=== PATIENT | male | born 1995 | race Caucasian/White ===

== ENCOUNTER 2019-12-15 17:44 | Emergency (ER) | payer OTHER, SELFPAY ==
--- NOTE | ~2019-12-15 | XR_ITS ---
EXAMINATION: XR chest 2V DATE: 12/15/2019 18:32 INDICATION: Shortness of breath and cough. Chest pain. TECHNIQUE: Frontal and lateral views of the chest were obtained. COMPARISON: None. FINDINGS: The chest demonstrates clear lungs without pneumonia, pleural effusion, or pneumothorax. Th e heart size is normal. IMPRESSION: 1. No acute cardiopulmonary disease. Reviewed, dictated and finalized at location A.
--- NOTE | 2019-12-15 17:48 | PC.NURSE ---
Pt states was that [place] ([place]). States his work would not allow him to skip or self-quarantine upon returning (12/10/19). Developed fever, wheezing, shortness of breath yesterday(12/14/19). Pt masked upon arrival to ED. [employer] supervisor Carol made aware.
[2019-12-15 17:56] VITALS: BP 148/88; PULSE 109; RESP 26; TEMP 37.5; O2SAT 99
--- NOTE | 2019-12-15 18:02 | ECG_ITS ---
Measurements Intervals [place] Rate: 88 P: 40 ND: 154 QRS: 45 QRSD: 102 T: 14 QT: 338 QTc: 409 Interpretive Statements SINUS RHYTHM WITH SINUS ARRHYTHMIA NORMAL ECG Electronically Signed On 12-15-2019 18:46:55 CDT by Bud Patten D.O.
--- NOTE | 2019-12-15 18:28 | ED.SOB ---
HPI - SOB/Dyspnea General Chief Complaint: Shortness of Breath/Dyspnea Stated Complaint: fever, wheezing, shortness of breath Time Seen by Provider: 12/15/19 18:05 History of Present Illness HPI Narrative: Fever, cough, wheezing, nausea, and vomiting since yesterday. Additionally having some abdominal pain while vomiting. minimal SOB. Influenza negative during triage. He has been taking motrin and tylenol with minimal improvement of his symptoms. Related Data Allergies Allergy/AdvReac Type Severity Reaction Status Date / Time hydromorphone Allergy Unknown Rash Verified 04/26/18 21:14 Review of Systems Review of Systems: All systems reviewed & are unremarkable except as noted in HPI and below Constitutional: Constitutional: Reports chills and Reports fever(s) Eyes: Eyes: Denies change in vision ENT: Denies sore throat Cardiovascular: Cardiovascular: Reports chest pain Respiratory: Respiratory: Reports cough, Reports dyspnea and Reports wheezing Gastrointestinal: Gastrointestinal: Reports abdominal pain, Reports nausea and Reports vomiting Genitourinary: Genitourinary: Denies dysuria Musculoskeletal: Musculoskeletal: Reports myalgias Integumentary/Breasts: Skin/Breast: Denies rash Neurologic: Denies dizziness and Denies weakness [facility] Past Medical History Medical History (Updated 12/15/19 @ 20:04 by Jonathon Means MD) Gastroschisis Social History Social History (Updated 12/15/19 @ 18:34 by Jonathon Means MD) Social History: Travel to [place] 10 days ago Gender identity (if verbalized by the patient): Male Exam Const: General: no acute distress, alert, diaphoretic and ill appearing acutely Nutritional Appearance: obese Orientation/consciousness: patient oriented x3 HENMT: Head: normal to inspection Resp: Effort & Inspection: normal respiratory effort Auscultation: clear to auscultation bilaterally Cardio: Rate: tachycardic Rhythm: regular rhythm GI: GI Palp: Yes Soft to palpation and No Tenderness to palpation present (GI) Skin: General skin exam: normal color Neuro: General: patient oriented x3 and moves all extremities Speech: normal speech Extrem: General: normal to inspection Course Vital Signs Vital signs: Vital Signs Temperature 37.5 C 12/15/19 17:56 Pulse Rate 109 H 12/15/19 17:56 Respiratory Rate 26 H 12/15/19 17:56 Blood Pressure 148/88 H 12/15/19 17:56 Pulse Oximetry 99 12/15/19 17:56 Temperature 36.9 C 12/15/19 19:06 Pulse Rate 99 12/15/19 20:01 Respiratory Rate 15 12/15/19 19:06 Blood Pressure 141/90 H 12/15/19 20:01 Pulse Oximetry 99 12/15/19 19:06 MDM - SOB/Dyspnea MDM Narrative Medical decision making narrative: He has symptoms compatibloe with COVID-19 infection. He had recent travel to [place], which is an endemic area. CXR is clear and vitals are reassuring. He has no comorbid conditions increasing his risk of severe disease. He does not require hospitalization. He does not meet criteria for priority testing per [facility], they did advise that testing could be done per a private facility. I will plan to do this given that he has risk factors and compatible symptoms. He also has been exposed to his elderly grandmother who would benefit from early diagnosis should symptoms develop. Differential Diagnosis Differential diagnosis: Likely community acquired pneumonia and other (influenza, COVID-19, bronchitis, gastroenteritis) Medical Records Attestation: I reviewed the patient's medical records. Lab Data Attestation: I reviewed the patient's lab results. Result diagrams: 12/15/19 18:25 12/15/19 18:25 Labs: Lab Results 12/15/19 12/15/19 Range/Units 18:25 18:25 WBC 10.3 H (4.5-10.0) K/mm3 RBC 5.16 (4.6-6.20) M/mm3 Hgb 15.7 (14.0-18.0) g/dL Hct 44.0 (42.0-52.0) % MCV 85.3 (80-100) fl MCH 30.4 (26-34) pg MCHC 35.7 (32-36) g/dl RDW 12.6 (11.5-14.5) % Plt
[2019-12-15 18:30] VITALS: PULSE 105; O2SAT 99
[2019-12-15 18:35] LABS: Basophils Absolute Auto 0.1 K/mm3 (0.0-0.1); Basophils Percent Auto 0.8 % (0.2-1.2); Eosinophils Absolute Auto 0.9 K/mm3 (0-0.3); Eosinophils Percent Auto 8.6 % (0-4.4); Hemoglobin 15.7 g/dL (14.0-18.0); Immature Granulocyte Absolute 0.04 K/mm3 (0.00-0.031); Immature Granulocyte Percent A 0.4 % (0-0.5); Lymphocytes Absolute Auto 2.91 K/mm3 (0.9-3.2); Lymphocytes Percent Auto 28.2 % (18.3-44.2); Mean Corpuscular HGB Conc 35.7 g/dl (32-36); Mean Corpuscular Hemoglobin 30.4 pg (26-34); Mean Corpuscular Volume 85.3 fl (80-100); Mean Platelet Volume 9.1 fl (7.4-10.4); Monocytes Absolute Auto 0.6 K/mm3 (0.1-0.6); Monocytes Percent Auto 5.8 % (2.6-8.5); Neutrophils Absolute Auto 5.8 K/mm3 (1.3-6.7); Neutrophils Percent Auto 56.2 % (45.5-73.1); Platelet Count Result 275 k/mm3 (150-375); Red Blood Count 5.16 M/mm3 (4.6-6.20); Red Cell Distribution Width 12.6 % (11.5-14.5); White Blood Count 10.3 K/mm3 (4.5-10.0)
[2019-12-15 18:43] LABS: Blood Urea Nitrogen 20 mg/dL (9-20); Calcium 9.6 mg/dL (8.4-10.2); Carbon Dioxide 29 mmol/L (22-30); Chloride 104 mmol/L (98-107); Estimated CRCL calculation 114 ml/min; Estimated Glomerular Filt Rate > 60; Glucose 92 mg/dL (75-110); Potassium 3.7 mmol/L (3.4-5.0); Sodium 139 mmol/L (137-145)
[2019-12-15] MEDS: ALBUTEROL SULFATE NEB 2.5 MG/0.5 ML INH 5 MG INHALATION (18:54)
[2019-12-15 18:55] VITALS: PULSE 78; RESP 16
[2019-12-15] MEDS: ONDANSETRON INJ 4 MG/2 ML VIAL IV PUSH (19:05)
[2019-12-15 19:06] VITALS: BP 140/84; PULSE 91; PULSE 97; RESP 15; RESP 16; TEMP 36.9; O2SAT 99
[2019-12-15 20:01] VITALS: BP 141/90; PULSE 99
[2019-12-15 20:25] VITALS: BP 141/90; PULSE 93; RESP 17; O2SAT 99
[2019-12-22 10:31] LABS: SARS-CoV-2 RNA: Negative
[2019-12-22 10:32] LABS: Pan-SARS RNA: Negative
== END 2019-12-15 20:30 | disposition home or self-care (01) ==
PROVIDERS: Emergency Medicine; Emergency Provider Emergency Medicine
DX: B34.9 Viral infection, unspecified (principal); Z20.828 Contact with and (suspected) exposure to other viral communicable diseases
CPT/HCPCS: 36415; 71046; 80048; 85025; 87635; 87804; 93005; 94640; 96374; 99284; J2405; U0002

== ENCOUNTER 2021-06-08 08:09 | Emergency (ER) | payer OTHER, SELFPAY ==
[2021-06-08] VITALS (15 sets, daily range): BP systolic 116–154; BP diastolic 66–99; PULSE 50–77; RESP 14–26; TEMP 36.1–36.8; O2SAT 96–100
--- NOTE | ~2021-06-08 | CT_ITS ---
EXAMINATION: CT abdomen pelvis wo con EXAM DATE: 06/08/2021 09:07 INDICATION: Lower abdominal pain with nausea. TECHNIQUE: Spiral CT of the abdomen and pelvis was performed without contrast. Axial, coronal and sag ittal images were reviewed. The dose-length product (DLP) for this examination was 703.32 mGy-cm. T he exposure was tailored according to patient size (auto mA exposure control), and iterative reconstr uction (ASIR) was used as additional dose reduction technique. There is no prior study for compariso n. FINDINGS: There is a 2 mm calcification likely a right ureterovesicular junction stone. Mild right hy droureteronephrosis. Additional punctate right mid calyceal stone. The prostate is unremarkable. Th e bladder is unremarkable. The liver, spleen, adrenal glands and pancreas are unremarkable. Gallbla dder is unremarkable. No biliary obstruction. Scattered small mesenteric lymph nodes within normal size limits. There are no findings to suggest appendicitis. The stomach and small bowel are unremarkable. There is expected amount of colonic stool. No free intraperitoneal gas. The heart is normal in size. T here are no pericardial or pleural effusions. The lung bases are unremarkable. There are no osteobl astic or osteolytic lesions identified. IMPRESSION: 1. Right UVJ 2 mm stone. Mild hydroureteronephrosis. 2. Punctate right nephrolithiasis. Reviewed, dictated and finalized at location B.
[2021-06-08 08:23] LABS: Basophils Absolute Auto 0.1 K/mm3 (0.0-0.1); Basophils Percent Auto 0.8 % (0.2-1.2); Eosinophils Absolute Auto 0.2 K/mm3 (0-0.3); Eosinophils Percent Auto 2.1 % (0-4.4); Hemoglobin 16.3 g/dL (14.0-18.0); Immature Granulocyte Absolute 0.07 K/mm3 (0.00-0.031); Immature Granulocyte Percent A 0.7 % (0-0.5); Lymphocytes Absolute Auto 4.21 K/mm3 (0.9-3.2); Lymphocytes Percent Auto 39.8 % (18.3-44.2); Mean Corpuscular HGB Conc 35.4 g/dl (32-36); Mean Corpuscular Hemoglobin 30.2 pg (26-34); Mean Corpuscular Volume 85.3 fl (80-100); Monocytes Absolute Auto 0.8 K/mm3 (0.1-0.6); Monocytes Percent Auto 7.6 % (2.6-8.5); Neutrophils Absolute Auto 5.2 K/mm3 (1.3-6.7); Platelet Count Result 293 k/mm3 (150-375); Red Blood Count 5.39 M/mm3 (4.6-6.20); Red Cell Distribution Width 12.6 % (11.5-14.5); White Blood Count 10.6 K/mm3 (4.5-10.0)
[2021-06-08] MEDS: SODIUM CHLORIDE 0.9% IV 1,000 ML 999 ML IV CONT (08:53)
[2021-06-08] MEDS: KETOROLAC 30 MG/ML VIAL (*BKC) (08:54)
[2021-06-08] MEDS: ONDANSETRON INJ 4 MG/2 ML VIAL ×2 (08:54→09:33)
[2021-06-08 10:17] LABS: Add Urine Microscopic? YES; Appearance Urine Clear (Clear); Bilirubin Urine Negative (Negative); Blood Urine 2+ (Negative); Color Urine Yellow (Yellow); Glucose Urine UA Negative (Negative); Ketones Urine Negative (Negative); Leukocyte Esterase Ur Trace LEU/UL (Negative); Mucus Urine Moderate /lpf; Nitrate Urine Negative (Negative); Protein Urine Negative (Negative); Squamous Epithelial Cell Urine Rare /hpf (Few); WBC Urine 16-20 /hpf
[2021-06-08 10:21] LABS: Specific Grav Ur 1.036 (1.001-1.035)
[2021-06-08 10:22] LABS: Alanine Aminotransferase 127 U/L (4-50); Albumin Level 4.6 g/dL (3.5-5.1); Alkaline Phosphatase 103 U/L (38-126); Anion Gap 10 mmol/L (8-16); Aspartate Amino Transferase 48 U/L (17-59); Bilirubin,Total 1.2 mg/dL (0.2-1.3); Blood Urea Nitrogen 23 mg/dL (9-20); Calcium 9.5 mg/dL (8.4-10.2); Carbon Dioxide 23 mmol/L (22-30); Chloride 107 mmol/L (98-107); Estimated CRCL calculation 112 ml/min; Estimated Glomerular Filt Rate > 60; Glucose 105 mg/dL (65-110); Lipase 70 U/L (23-300); Potassium 4.1 mmol/L (3.4-5.0); Sodium 140 mmol/L (137-145)
[2021-06-08] MEDS: TAMSULOSIN HCL 0.4 MG CAPSULE PO (10:42)
[2021-06-08] MEDS: MORPHINE SULFATE (*CRX) 4 MG/ML INJ IV PUSH ×2 (10:42→12:20)
--- NOTE | 2021-06-08 12:04 | PC.NURSE ---
C/O continued pain to right side over into abd unrelieved with Morphine. Dr. Doss notified.
--- NOTE | 2021-06-08 12:14 | ED.ABDPAIN ---
HPI - Abdominal Pain General Chief Complaint: Abdominal Pain Stated Complaint: RLQ PAIN Time Seen by Provider: 06/08/21 08:47 Source: patient Limitations: no limitations History of Present Illness HPI narrative: Patient work-up with right lower quadrant pain radiating to right testicle associated with nausea. Patient denies aggravating or relieving factors, history of kidney stone Related Data Allergies Allergy/AdvReac Type Severity Reaction Status Date / Time hydromorphone Allergy Unknown Rash Verified 06/08/21 08:20 Review of Systems Review of Systems: CONSTITUTIONAL: Denies fever, chills, or sweats. EYES: Denies visual changes, redness, or discharge. ENT: Denies rhinorrhea, congestion, sore throat, or otalgia. CARDIOVASCULAR: Denies chest pain, palpitations, or edema. RESPIRATORY: Denies cough or dyspnea. GASTROINTESTINAL: Denies abdominal pain, nausea, vomiting, or diarrhea. GENITOURINARY: Denies dysuria or hematuria. SKIN: Denies rash or itching. MUSCULOSKELETAL: Denies back pain, joint pain, or myalgia. NEUROLOGIC: Denies headache, numbness, or weakness. PSYCHIATRIC: Denies anxiety or depression. [facility] Past Medical History Medical History Gastroschisis Social History Social History Social History: Travel to [place] 10 days ago Gender identity (if verbalized by the patient): Male Exam Narrative: General appearance: Well-developed, well-nourished Skin: Normal color Head: Normocephalic, nontraumatic Eyes: Clear conjunctiva ENT: Oropharynx normal, ears normal, nose normal Neck: Supple, nontender Chest and respiratory: Airway patent, no respiratory distress, no accessory muscle use Heart: Regular rate/rhythm Abdomen: Soft, mild tenderness right flank and right lower quadrant, no organomegaly, quiet bowel sounds Vascular: Normal peripheral pulses, normal capillary refill. Musculoskeletal: Normal range of motion, nontender back Neurologic: Alert and oriented ?3, SECURITY ASSESSOR is normal as tested, no gross motor deficit Course Course Emergency Course: Stable, improved improving Vital Signs Vital signs: Vital Signs Temperature 36.1 C L 06/08/21 08:07 Pulse Rate 70 06/08/21 08:07 Respiratory Rate 14 06/08/21 08:07 Blood Pressure 146/90 H 06/08/21 08:07 Pulse Oximetry 100 06/08/21 08:07 Temperature 36.1 C L 06/08/21 08:07 Pulse Rate 55 L 06/08/21 11:02 Respiratory Rate 17 06/08/21 11:02 Blood Pressure 125/82 06/08/21 11:02 Pulse Oximetry 96 06/08/21 11:02 MDM - Abdominal Pain MDM Narrative Medical decision making narrative: Kidney stone is my concern. Work-up showed 2 mm right UVJ, patient received Toradol, morphine, Flomax, Zofran and 1 L of normal saline, feeling much better and ready to go. Lab Data Result diagrams: 06/08/21 08:15 06/08/21 08:15 Labs: Lab Results 06/08/21 06/08/21 06/08/21 Range/Units 08:15 08:15 09:42 WBC 10.6 H (4.5-10.0) K/mm3 RBC 5.39 (4.6-6.20) M/mm3 Hgb 16.3 (14.0-18.0) g/dL Hct 46.0 (42.0-52.0) % MCV 85.3 (80-100) fl MCH 30.2 (26-34) pg MCHC 35.4 (32-36) g/dl RDW 12.6 (11.5-14.5) % Plt Count 293 (150-375) k/mm3 MPV 9.0 (7.4-10.4) fl Immature Gran % (Auto) 0.7 H (0-0.5) % Neut % (Auto) 49.0 (45.5-73.1) % Lymph % (Auto) 39.8 (18.3-44.2) % Randall % (Auto) 7.6 (2.6-8.5) % Eos % (Auto) 2.1 (0-4.4) % Baso % (Auto) 0.8 (0.2-1.2) % Lymph # (Auto) 4.21 H (0.9-3.2) K/mm3 Randall # (Auto) 0.8 H (0.1-0.6) K/mm3 Eos # (Auto) 0.2 (0-0.3) K/mm3 Baso # (Auto
== END 2021-06-08 13:05 | disposition home or self-care (01) ==
PROVIDERS: Emergency Provider Emergency Medicine
DX: N13.2 Hydronephrosis with renal and ureteral calculous obstruction (principal); Z87.738 Personal history of other specified (corrected) congenital malformations of digestive system
CPT/HCPCS: 36415; 74176; 80053; 81001; 83690; 85025; 87086; 96361; 96374; 96375; 96376; 99284; A9270; J1885; J2270; J2405; J7030

== ENCOUNTER 2022-06-08 08:32 | Emergency (ER) | payer MEDICAID, SELFPAY ==
[2022-06-08] VITALS (8 sets, daily range): BP systolic 126–149; BP diastolic 53–94; PULSE 104; RESP 14; TEMP 37.9; O2SAT 98
--- NOTE | 2022-06-08 09:06 | ED.URI ---
HPI - URI/Sore Throat General Chief Complaint: Upper Respiratory Infection Stated Complaint: SORE THROAT, INTERMITTENT FEVERS Time Seen by Provider: 06/08/22 08:59 History of Present Illness HPI Narrative: 26-year-old male presents to the emergency room today for complaints of a sore throat and nasal congestion. He has had a mild cough. He reports having a fever up to 102. Symptoms started yesterday. He denies feeling short of breath or having any wheezing. Denies any nausea vomiting or diarrhea. The sore throat is his primary complaint. He says that he also has some pain in both of his years. He has not taken anything for fever today. Related Data Allergies Allergy/AdvReac Type Severity Reaction Status Date / Time hydromorphone Allergy Unknown Rash Verified 06/08/22 08:33 Review of Systems Review of Systems: CONSTITUTIONAL: fever up to 102 EYES: Denies visual changes, redness, or discharge. ENT: as per HPI CARDIOVASCULAR: Denies chest pain, palpitations, or edema. RESPIRATORY:as per HPI GASTROINTESTINAL: Denies abdominal pain, nausea, vomiting, or diarrhea. GENITOURINARY: Denies dysuria or hematuria. SKIN: Denies rash or itching. MUSCULOSKELETAL: Denies back pain, joint pain, or myalgia. NEUROLOGIC: Denies headache, numbness, dizziness, or weakness. PSYCHIATRIC: Denies anxiety or depression. [facility] Past Medical History Medical History Gastroschisis Social History Social History Social History: Travel to [place] 10 days ago Gender identity (if verbalized by the patient): Male Exam Narrative: GENERAL: Well-appearing, well-nourished, and in no acute distress. HEAD: Normocephalic, atraumatic. EYES: PERRLA and EOMI. ENT: Nares clear, no rhinorrhea or epistaxis. Mucous membranes moist. Oropharynx erythematous, tonsils enlarged 3+ with erythema and exudates. Bilateral TMs pearly tan nonbulging NECK: Supple. anterior cervical lymphadenopathy. CHEST: Clear to auscultation. No respiratory distress. No wheezes rales or rhonchi HEART: Regular rate and rhythm. No murmur heard. Normal peripheral pulses. ABDOMEN: Soft, nontender, nondistended, normal active bowel sounds. EXTREMITIES: Normal range of motion. No edema. SKIN: Warm, dry, no rash. NEURO: No focal deficits. Alert and oriented x3. PSYCH: Normal mood and affect. Course Vital Signs Vital signs: Vital Signs Temperature 37.9 C H 06/08/22 08:49 Pulse Rate 104 H 06/08/22 08:49 Respiratory Rate 14 06/08/22 08:49 Blood Pressure 132/79 06/08/22 08:49 Pulse Oximetry 98 06/08/22 08:49 Temperature 37.9 C H 06/08/22 08:49 Pulse Rate 104 H 06/08/22 08:49 Respiratory Rate 14 06/08/22 08:49 Blood Pressure 132/79 06/08/22 08:49 Pulse Oximetry 98 06/08/22 08:52 Oxygen Delivery Room Air 06/08/22 08:52 MDM - URI/Sore Throat Differential Diagnosis Differential diagnosis: Likely upper respiratory infection, otitis media, sinusitis, bronchitis, influenza and pharyngitis Lab Data Attestation: I reviewed the patient's lab results. Labs: Lab Results 06/08/22 Range/Units 09:13 Influenza A (RT-PCR) Negative (Negative) Influenza B (RT-PCR) Negative (Negative) SARS-CoV-2 RNA (RT-PCR) Negative Strep Screen Positive Group A Strep *(Reference Range: Negative)* Discharge Plan Discharge Clinical Impression: Strep sore throat Patient Disposition: Home, Self-Care Condition: Stable Instructions: Antibiotic Form, Strep Throat (DC) Additional Instructions: Take your full course of antibiotics. Take ibuprofen or Tylenol as needed for pain or fever. Drink plenty of oral fluids. Follow-up with your primary care provider if no improvement in 24 to 48 hours. Prescriptions: New amoxicillin 875 mg tablet 875 mg PO Q12H 10 Days Qty: 20 0
[2022-06-08] MEDS: IBUPROFEN 600 MG TABLET PO (09:47)
[2022-06-08 09:56] LABS: Influenza A QL RT-PCR Negative (Negative); Influenza B QL RT-PCR Negative (Negative); SARS-CoV-2 RNA PCR Negative
== END 2022-06-08 10:25 | disposition home or self-care (01) ==
PROVIDERS: Emergency Provider Nurse Practitioner Family
DX: J02.0 Streptococcal pharyngitis (principal); Z20.822 Contact with and (suspected) exposure to COVID-19
CPT/HCPCS: 87502; 87880; 99283; A9270; C9803; U0003; U0005

== ENCOUNTER 2024-08-06 08:41 | Emergency (ER) | payer SELFPAY ==
[2024-08-06 08:43] VITALS: BP 142/98; PULSE 128; RESP 16; TEMP 36.4; O2SAT 96
== END 2024-08-06 12:24 | disposition left against medical advice (07) ==
LOC: ANHED 12:14
DX: H92.01 Otalgia, right ear (principal)
CPT/HCPCS: 99199

== ENCOUNTER 2024-08-23 17:15 | Emergency (ER) | payer OTHER, SELFPAY ==
--- NOTE | ~2024-08-23 | XR_ITS ---
EXAM: XR hand RT min 3V DATE: 08/23/2024 17:49 HISTORY: DETAILED NOTES IN PACS SWELLING PAIN . COMPARISON: X-ray right wrist 01/02/2018. FINDINGS: Normal mineralization. No fracture or dislocation. No lytic or blastic lesion. Joint space s are maintained. No erosion or periosteal change. 4 mm linear hyperdensity over the soft tissues of the palm, medial aspect of the hypothenar soft tissues. IMPRESSION: No acute osseous finding in the right hand. 4 mm radiodensity overlying the soft tissues of the palm, may represent superficial debris or foreign body. Reviewed, dictated and finalized at location K. NING ADMINISTRATOR IMPRESSION: No acute osseous finding in the right hand. 4 mm radiodensity overlying the soft tissues of the palm, may represent superfi cial debris or foreign body.
[2024-08-23 17:20] VITALS: BP 148/84; PULSE 63; RESP 14; TEMP 36.6; O2SAT 100
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
[2024-08-23 19:30] VITALS: BP 125/76; PULSE 58; RESP 20; TEMP 36.8; O2SAT 100
== END 2024-08-23 19:30 | disposition home or self-care (01) ==
LOC: ANHED 19:20
PROVIDERS: Emergency Provider Student in an Organized Health Care Education/Training Program
DX: S60.221A Contusion of right hand, initial encounter (principal); S60.511A Abrasion of right hand, initial encounter; V86.55XA Driver of 3- or 4- wheeled all-terrain vehicle (ATV) injured in nontraffic accident, initial encounter
CPT/HCPCS: 73130; 99283